=== PATIENT | male | born 1985 | race Caucasian/White ===

== ENCOUNTER 2017-03-23 13:20 | Outpatient (CLI) | payer MEDICAID ==
[2017-03-24 08:18] LABS: TEST RESULT REPORT (())
[2017-03-26 16:16] LABS: HSV 1 IGG INDEX <0.90 INDEX (()); HSV 1/2 IGM CONFIRMATORY IFA NEGATIVE (()); HSV 1/2 IGM INDEX 1.44 INDEX (()); HSV 2 IGG INDEX <0.90 INDEX (())
== END 2017-03-23 13:21 | disposition home or self-care (01) ==
LOC: LAB.F 13:20
PROVIDERS: ATTEND Nurse Practitioner Family
DX: Z72.51 High risk heterosexual behavior (principal)
CPT/HCPCS: 36415; 81599; 86592; 86694; 86695; 86696; 86803; 87389; 87491; 87591